=== PATIENT | female | born 1990 | race Caucasian/White ===

== ENCOUNTER 2017-12-02 20:31 | Emergency (ER) | payer OTHER ==
[2017-12-02 20:44] VITALS: BMI 45.3
[2017-12-02] MEDS ORDERED: NS 1000 ML 500 ML IV ONE (21:24)
[2017-12-02] MEDS ORDERED: BENADRYL INJ 50 MG VIAL IVP ONE (21:24)
[2017-12-02] MEDS ORDERED: COMPAZINE INJ IVP ONE (21:26)
[2017-12-02] MEDS ORDERED: ZOFRAN INJ 4 MG VIAL IVP ONE (21:26)
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
[2017-12-02] MEDS ORDERED: BENADRYL INJ 50 MG VIAL ONE (21:35)
[2017-12-02] MEDS ORDERED: NS 1000 ML 1,000 ML ONE (21:35)
[2017-12-02] MEDS ORDERED: ZOFRAN INJ 4 MG VIAL ONE (21:35)
[2017-12-02] MEDS ORDERED: COMPAZINE INJ ONE (21:35)
[2017-12-03 00:16] VITALS: BP 139/78
== END 2017-12-02 23:50 | disposition home or self-care (01) ==
LOC: ER 20:49
DX: G43.009 Migraine without aura, not intractable, without status migrainosus (principal)
CPT/HCPCS: 96365; 96367; 96374; 96375; 99282; 99284; A4222; J0780; J1200; J2405